=== PATIENT | female | born 2000 | race African-American/Black ===

== ENCOUNTER 2024-08-15 14:24 | Inpatient (IN) | payer MEDICARE, MEDICAID, SELFPAY ==
[2024-08-15] VITALS (31 sets, daily range): BP systolic 116–169; BP diastolic 83–97; PULSE 64–76; RESP 10–22; TEMP 34.6–35.6; O2SAT 92–100; BMI 34.9
--- NOTE | ~2024-08-15 | CT_ITS ---
EXAMINATION: CT brain wo con DATE: 08/15/2024 16:57 INDICATION: Altered mental status TECHNIQUE: Computed tomography (CT) of the head was performed without intravenous contrast. Sagittal and coronal reconstructions were performed. The mA was adjusted according to patient size. Iterative reconstruction technique was employed. The dose-length product was 605.33 mGy-cm. COMPARISON: None FINDINGS: No acute intracranial hemorrhage, acute infarction or abnormal extra axial fluid collection. Ventricl es are normal and symmetric with normal variant cavum septum callosum and vergae. No mass/mass effect . Mild pleural ossification along the falx. The orbits, paranasal sinuses and mastoid air cells are n ormal. IMPRESSION: 1. Normal brain. No acute intracranial process. Reviewed, dictated and finalized at location B. ER OPERATOR
--- NOTE | ~2024-08-15 | US_ITS ---
EXAMINATION: US abdomen limited DATE: 08/16/2024 09:44 INDICATION: Right upper quadrant abdominal pain. TECHNIQUE: Multiple grayscale and Doppler ultrasound images of the abdomen were obtained. COMPARISON: None FINDINGS: The visualized portions of the head, body, and tail of the pancreas are normal. The liver i s normal without focal lesion. There is antegrade pulsatile flow in main portal vein. The gallbladder is normal in size and contains gallstones. Gallbladder wall thickening is noted. There is no sonogra phic Lim's sign. The common duct is normal and measures 3 mm. There is trace perihepatic ascites. IMPRESSION: 1. Cholelithiasis. Gallbladder wall thickening may be secondary to chronic cholecystitis or interstit ial edema. 2. Antegrade pulsatile flow in main portal vein, which may be seen with right heart failure. Reviewed, dictated and finalized at location A. HICS SOFTWARE ENGINEER IMPRESSION: 1. Cholelithiasis. Gallbladder wall thickening may be secondary to chronic chol ecystitis or interstitial edema. 2. Antegrade pulsatile flow in main portal vein, which may be seen with right h eart failure.
--- NOTE | ~2024-08-15 | XR_ITS ---
EXAMINATION: XR chest 1V portable DATE: 08/15/2024 15:02 INDICATION: Altered mental status. TECHNIQUE: A single frontal view of the chest was obtained. COMPARISON: None. FINDINGS: There is mild elevation of right hemidiaphragm. There are airspace opacities in left lower lobe. No pleural effusion or pneumothorax. Cardiomegaly is noted. There is a vascular stent in left a xilla. IMPRESSION: 1. Airspace opacities in left lower lobe, consistent with atelectasis versus pneumonia. 2. Cardiomegaly. Reviewed, dictated and finalized at location A. [place] IMPRESSION: 1. Airspace opacities in left lower lobe, consistent with atelectasis versus pn eumonia. 2. Cardiomegaly.
[2024-08-15 14:41] LABS: Glucose Point of Care 123 mg/dl (65-105)
--- NOTE | 2024-08-15 14:45 | ECG_ITS ---
Test Date: 2024-08-15 15:18:41 Measurements Intervals [place] Rate: 64 P: 52 IN: 199 QRS: 110 QRSD: 88 T: 94 QT: 409 QTc: 422 Interpretive Statements SINUS RHYTHM LEFT ATRIAL ENLARGEMENT LEFT POSTERIOR FASCICULAR BLOCK NONSPECIFIC ST-T WAVE ABNORMALITY- DIFFUSE LEADS ABNORMAL ECG No previous ECG available for comparison Electronically Signed On 08-16-2024 16:23:52 EMERGENCY MANAGEMENT COORDINATOR by Anup Vang D.O.
[2024-08-15 15:12] LABS: Alveolar/Arterial O2 Gradient 21.7 mmHg; Base Excess ABG 1.3 mEq/l (+/-2.0); Fractional Inspired Oxygen 21 %; HCO3 ABG 25.4 mEq/l (22.0-26.0); Oxygen Content ABG 14.4 %vol (16.0-22.0); Oxygen Saturation ABG 96.4 % (95.0-100.0); Oxyhemoglobin 94.1 % THb (90.0-100.0); PCO2 ABG 38.4 mmHg (35.0-45.0); Total Hemoglobin 10.8 g/dL (12.0-18.0); pH ABG 7.439 (7.350-7.450)
[2024-08-15 15:15] LABS: Device ROOM AIR; Site Drawn RIGHT BRACHIAL
[2024-08-15 15:16] LABS: Basophils Absolute Auto 0.1 K/mm3 (0.0-0.1); Basophils Percent Auto 1.5 % (0.2-1.2); Eosinophils Absolute Auto 0.6 K/mm3 (0-0.3); Eosinophils Percent Auto 7.9 % (0-4.4); Hematocrit 30.8 % (37.0-47.0); Hemoglobin 10.1 g/dL (12.0-15.0); Immature Granulocyte Absolute 0.02 K/mm3 (0.00-0.031); Immature Granulocyte Percent A 0.3 % (0-0.5); Lymphocytes Absolute Auto 1.27 K/mm3 (0.9-3.2); Lymphocytes Percent Auto 17.9 % (18.3-44.2); Mean Corpuscular HGB Conc 32.8 g/dl (32-36); Mean Corpuscular Hemoglobin 32.2 pg (26-34); Mean Corpuscular Volume 98.1 fl (80-100); Mean Platelet Volume 9.1 fl (7.4-10.4); Monocytes Percent Auto 13.5 % (2.6-8.5); Neutrophils Absolute Auto 4.2 K/mm3 (1.3-6.7); Neutrophils Percent Auto 58.9 % (45.5-73.1); Platelet Count Result 271 k/mm3 (150-375); Red Blood Count 3.14 M/mm3 (4.2-5.4); Red Cell Distribution Width 16.1 % (11.5-14.5); White Blood Count 7.1 K/mm3 (4.5-10.0)
[2024-08-15] MEDS: NALOXONE HCL 0.4 MG/ML VIAL IV PUSH (15:21)
[2024-08-15 15:33] LABS: INR 1.3; Prothrombin Time 16.7 Seconds (11.1-14.7)
[2024-08-15 15:34] LABS: Alanine Aminotransferase 83 U/L (6-35); Albumin Level 3.8 g/dL (3.5-5.1); Alkaline Phosphatase 742 U/L (38-126); Anion Gap 11 mmol/L (4-12); Aspartate Amino Transferase 85 U/L (14-36); Bilirubin,Total 1.8 mg/dL (0.2-1.3); Blood Urea Nitrogen 63 mg/dL (7-17); Calcium 8.4 mg/dL (8.4-10.2); Carbon Dioxide 26 mmol/L (22-30); Chloride 100 mmol/L (98-107); Estimated CRCL calculation 18 ml/min; Estimated Glomerular Filt Rate 14; Ethanol < 10 mg/dL (<10); Glucose 67 mg/dL (65-110); Lactic Acid Reflex 0.7 mmol/L (0.7-2.0); Partial Thromboplastin Time 33.6 Seconds (22.3-36.8); Potassium 4.5 mmol/L (3.4-5.0); Sodium 137 mmol/L (137-145)
[2024-08-15 16:56] LABS: Influenza A QL RT-PCR Negative (Negative); Influenza B QL RT-PCR Negative (Negative); RSV RNA, RT-PCR Negative (Negative); SARS-CoV-2 RNA PCR Negative (Negative)
--- NOTE | 2024-08-15 17:08 | PC.NURSE ---
Pt returned from CT. Alex matute resumed on high
--- NOTE | 2024-08-15 17:37 | ED_ITS ---
HPI - Altered Mental Status General Chief Complaint: Altered Mental Status Stated Complaint: lethargic Time Seen by Provider: 08/15/24 14:41 History of Present Illness HPI narrative: Patient is a 23-year-old female who presents ER with altered mental status. She had gone to the store with her mom and was sitting the back of the car at a drive-through when she became acutely altered. According to the mother patient did this recently and was seen at [facility] and was treated for low blood sugar. Mother drove the patient to her home and checked her blood sugar and it was around 62. EMS arrived and gave D10 with no change in status and patient was brought to the ER. Patient responds to minor stimuli and tries to answer questions. She can move extremities but is very lethargic. Patient does not make urine. According mother patient does not use drugs or alcohol. Related Data Home Medications Medication Instructions Recorded Confirmed bictegravir 50 mg-emtricitabine 1 tablet PO QHS 08/16/24 08/16/24 200 mg-tenofovir alafenam 25 mg tablet (Biktarvy) carvedilol 25 mg tablet 25 mg PO BID 08/16/24 08/16/24 citalopram 10 mg tablet 10 mg PO DAILY 08/16/24 08/16/24 clonidine HCl 0.1 mg tablet See Rx Instructions .Route .COMPLEX 08/16/24 08/16/24 escitalopram oxalate 10 mg tablet 10 mg PO DAILY 08/16/24 08/16/24 gabapentin 100 mg capsule 100 mg PO TID 08/16/24 08/16/24 hydralazine 50 mg tablet See Rx Instructions .Route .COMPLEX 08/16/24 08/16/24 insulin aspart See Rx Instructions .Route .COMPLEX 08/16/24 08/16/24 (niacinamide)(U-100) 100 unit/mL(3 mL) subcutaneous pen (Fiasp FlexTouch U-100 Insulin) insulin glargine 100 unit/mL (3 12 unit subcut QHS 08/16/24 08/16/24 mL) subcutaneous pen (Basaglar KwikPen U-100 Insulin) isosorbide dinitrate 10 mg tablet 10 mg PO TID 08/16/24 08/16/24 losartan 50 mg tablet 50 mg PO DAILY 08/16/24 08/16/24 sucroferric oxyhydroxide 500 mg See Rx Instructions .Route .COMPLEX 08/16/24 08/16/24 chewable tablet (Velphoro) Allergies Allergy/AdvReac Type Severity Reaction Status Date / Time No Known Allergies Allergy Verified 08/15/24 17:57 Review of Systems Review of Systems: ROS unobtainable: Yes unobtainable due to mental status PMFSH Past Medical History Medical History (Updated 08/15/24 @ 22:10 by Kim Kwong APRN) CHF (congestive heart failure) Diabetic neuropathy DM type 1 (diabetes mellitus, type 1) ESRD (end stage renal disease) on dialysis HIV (human immunodeficiency virus infection) HTN (hypertension) Lumbar vertebral fracture 07/2024 Risk for falls Sleep apnea Walker as ambulation aid Surgical History Surgical History (Updated 08/15/24 @ 21:38 by Kim Kwong APRN) History of arteriovenostomy for renal dialysis Family History Family History (Updated 08/16/24 @ 07:50 by Claudia Jones RN) Father Diabetes mellitus Social History Social History Smoking status: Never smoker Alcohol intake: never Substance use: never Do You Feel Safe in your Home?: Yes Lack of Transportation: No Lack of Food: Never True Current Housing: I Have Housing Concerned About Future Housing: No Difficulty Paying Gas/Electric Bills: No Difficulty Paying for Meds: No Currently Unemployed: No Education: High School Diploma/GED Difficulty w/ Childcare or Family Care: No Spiritual care concerns: No Exam Narrative: GENERAL: Chronically ill-appearing, overweight, and slow to respond.. HEAD: Normocephalic, atraumatic. EYES: PERRL and EOMI. ENT: Mucous membranes moist. CHEST: Clear to auscultation. No respiratory distress. HEART: Regular rate and rhythm. Normal peripheral pulses. ABDOMEN: Soft, nontender, nondistended EXTREMITIES: Normal range of motion. No edema. SKIN: Warm, dry, no rash. NEURO: Moves all extremities. No facial droop. Alert and oriented x1. Course Course Emergency Course: patient remains altered on arrival here. Hypothermic and Alex warmer applied. Workup pretty unremarkable. No response to Narcan. IV antibiotics ordered as well as blood cultures. Admit to hospitalist. 1855: Patient's blood sugar at 21. D50 given. Up to 180, no change in mental status. Vital Signs Vital signs: Vital Signs Temperature 95.4 F L 08/15/24 14:28 Pulse Rate 64 08/15/24 14:28 Respiratory Rate 11 L 08/15/24 14:28 Blood Pressure 154/93 H 08/15/24 14:28 Pulse Oximetry 97 08/15/24 14:28 Oxygen Delivery Room Air 08/15/24 14:28 Temperature 97.6 F 08/16/24 03:15 Pulse Rate 69 08/16/24 06:00 Respiratory Rate 21 H 08/16/24 03:15 Blood Pressure 173/109 H 08/16/24 03:15 Pulse Oximetry 99 08/16/24 03:15 Oxygen Delivery Room Air 08/16/24 04:00 MDM - Altered Mental Status Lab Data 08/16/24 04:04 08/16/24 00:01 Labs: Lab Results 08/15/24 Range/Units 14:34 POC Capillary Glucose 123 H (65-105) mg/dl ABG Data ABG results: 08/15/24 15:06 Puncture Site Right brachial ABG pH 7.439 ABG pCO2 38.4 ABG pO2 82.0 ABG PO2/FiO2 Ratio 3.90 ABG HCO3 25.4 ABG O2 Saturation 96.4 ABG O2 Content 14.4 L ABG Base Excess 1.3 A-a Gradient 21.7 Oxyhemoglobin 94.1 Total Hemoglobin 10.8 L O2 Delivery Device Room air O2 Liters/Min Not Reportable FiO2 21 Imaging Data Radiologist's impression: ITS Impressions Chest X-Ray 08/15/24 15:02 IMPRESSION: 1. Airspace opacities in left lower lobe, consistent with atelectasis versus pneumonia. 2. Cardiomegaly. Head CT 08/15/24 16:59 IMPRESSION: 1. Normal brain. No acute intracranial process. Discharge Plan Discharge Clinical Impression: Hypoglycemia Hypothermia Qualifiers: Encounter type: initial encounter Qualified Code(s): T68.XXXA - Hypothermia, initial encounter Pneumonia Qualifiers: Pneumonia type: due to unspecified organism Laterality: left Lung location: lower lobe of lung Qualified Code(s): J18.9 - Pneumonia, unspecified organism Patient Disposition: Still a Patient Condition: Stable
--- NOTE | 2024-08-15 18:39 | PC.NURSE ---
Pt noted to have congested cough intermittent.
[2024-08-15] MEDS: DEXTROSE 50% 25 GM/50 ML SYRINGE IV PUSH ×2 (18:55→21:50)
[2024-08-15 18:59] LABS: Glucose Point of Care 21 mg/dl (65-105)
[2024-08-15] MEDS: AZITHROMYCIN 500 MG/NS 250 ML 500 MG/250 ML BAG 250 MG IVPB (18:59)
[2024-08-15 19:08] LABS: Glucose Point of Care 118 mg/dl (65-105)
[2024-08-15] MEDS: DEXTROSE 5% 1,000 ML 1,000 ML 100 ML IV CONT (19:51)
[2024-08-15 19:55] LABS: Glucose Point of Care 71 mg/dl (65-105)
--- NOTE | 2024-08-15 19:57 | P.HP_ITS ---
H&P: HPI History of Present Illness Date/Time: 08/15/24 19:57 Chief Complaint: Altered Mental Status Narrative: 23 y/o F presents here with altered mental status with PMH of DM1, ESRD on HD (/Sun), CHF, HTN, and HIV. The patient presents here via EMS for further evaluation of altered mental status. The patient was with her mom in the car when she became altered. The patient reported to her mom after the incident that she began to feel unwell when they got in the care around 1 p.m. Mom became concerned that her sugar may begin to drop given it was past lunch and the patient has a hx of DM1. They went through the drivethrough for a fast food restaurant. They then went to drive home from there, patient then stopped responding to verbal stimuli. Mom then drove to the patient's sister's house that was closer. She checked her sugar which was 41. She administered glucose gel. Recheck was 45. Initial glucose was 62, EMS was called and administered D10. Repeat blood sugar was checked at 200. However despite blood sugar being corrected, the patient remains lethargic. Patient's last hypoglycemic event prior to today was Sun and was also low week prior on . After hypoglycemia event last Sunday she was evaluated at [facility]. At this visit they adjusted her Lantus from 12u -> 16u. The mother reports that the patient has not been experiencing any cough, shortness of breath, fever, chills, body aches, or recent illness. Initial VS at presentation: 95.4? F, HR 64, RR 11, 154/93, and 97% on RA. ED workup showed: No leukocytosis, hemoglobin 10.1 (no previous available for comparison), INR 1.3, no significant derangements on ABG, creatinine 4.7 and GFR 14) no previous available for comparison), total bilirubin 1.8, TSH within normal limits, ETOH negative, and viral PCR negative. CXR showed airspace opacities left lower lobe consistent with atelectasis versus pneumonia and cardiomegaly. Head CT showed normal brain and no acute intracranial process. Review of Systems Review of Systems: ROS unobtainable: Yes unobtainable due to mental status (remains lethargic, discussed with mother - see above HPI) [facility] Past Medical History Medical History (Updated 08/15/24 @ 22:10 by Kim Kwong APRN) CHF (congestive heart failure) Diabetic neuropathy DM type 1 (diabetes mellitus, type 1) ESRD (end stage renal disease) on dialysis HIV (human immunodeficiency virus infection) HTN (hypertension) Lumbar vertebral fracture 07/2024 Risk for falls Sleep apnea Walker as ambulation aid Surgical History Surgical History (Updated 08/15/24 @ 21:38 by Kim Kwong APRN) History of arteriovenostomy for renal dialysis Meds Home Medications and Allergies Allergies Allergy/AdvReac Type Severity Reaction Status Date / Time No Known Allergies Allergy Verified 08/15/24 17:57 Vital Signs Vital Signs - 24 hr 08/15/24 14:28 08/15/24 14:41 08/15/24 14:48 Temperature 95.4 F L 95.4 F L Pulse Rate 64 Respiratory Rate 11 L Blood Pressure 154/93 H Pulse Oximetry 97 97 Oxygen Delivery Room Air Room Air 08/15/24 15:22 08/15/24 14:46 08/15/24 14:46 Temperature 94.3 F L 95.0 F L Pulse Rate 64 67 Respiratory Rate 12 Blood Pressure 151/97 H Pulse Oximetry 100 Oxygen Delivery 08/15/24 14:37 08/15/24 14:45 08/15/24 14:46 Temperature Pulse Rate 64 64 64 Respiratory Rate 11 L 12 12 Blood Pressure 154/93 H 160/91 H Pulse Oximetry 97 98 98 Oxygen Delivery 08/15/24 15:00 08/15/24 15:16 08/15/24 15:46 Temperature 95.0 F L Pulse Rate 64 64 64 Respiratory Rate 14 13 12 Blood Pressure 151/97 H 148/93 H Pulse Oximetry 99 100 100 Oxygen Delivery 08/15/24 16:01 08/15/24 16:31 08/15/24 16:40 Temperature 95 F L 95.0 F L Pulse Rate 65 67 Respiratory Rate 14 13 Blood Pressure 144/94 H 133/87 Pulse Oximetry 100 100 Oxygen Delivery 08/15/24 16:58 08/15/24 17:15 08/15/24 17:31 Temperature 95.6 F L 95.8 F L 95.8 F L Pulse Rate 68 68 70 Respiratory Rate 16 14 15 Blood Pressure 137/84 141/87 H 145/83 H Pulse Oximetry 96 94 100 Oxygen Delivery 08/15/24 15:00 08/15/24 15:30 08/15/24 16:00 Temperature 95.0 F L 95.0 F L 95.4 F L Pulse Rate 64 64 65 Respiratory Rate 16 14 14 Blood Pressure 169/97 H 146/94 H 133/87 Pulse Oximetry 100 100 100 Oxygen Delivery 08/15/24 18:31 08/15/24 18:01 08/15/24 18:15 Temperature 96.1 F L 95.8 F L 96.1 F L Pulse Rate 70 70 Respiratory Rate 14 16 Blood Pressure 135/87 130/87 Pulse Oximetry 100 100 Oxygen Delivery 08/15/24 18:40 Temperature 96.1 F L Pulse Rate 70 Respiratory Rate 14 Blood Pressure 129/84 Pulse Oximetry 100 Oxygen Delivery Exam Const: General: comfortable and no acute distress Other: , female, nontoxic appearance HENMT: Face/Nose/Sinus: Normal nares present Mouth: Yes moist mucous membranes Eyes: General: appearance normal, both eyes and all related structures Sclera: sclerae normal Pupils: Equal, round and reactive pupils present EOM: EOMs intact bilaterally Resp: Effort & Inspection: normal respiratory effort Other: Diffuse crackles/coarse lung sounds in bilateral lobes. Diminished at bases. Cardio: Rate: regular rate Rhythm: regular rhythm Other: S1-S2 present without murmur, rub, ectopy GI: Other: Abdomen soft, nondistended, nontender Skin: General skin exam: normal color and no rashes or lesions noted Other: Small wounds to face, no active bleeding or signs of infection. Surrounding old scarring. Neuro: Other: Patient remains lethargic, answering questions appropriately when able to sustain wakefulness. Extrem: General: normal to inspection Psych: Other: Unable to assess. H&P: Results Labs Labs: Short CBC 08/15/24 Range/Units 15:07 WBC 7.1 (4.5-10.0) K/mm3 Hgb 10.1 L (12.0-15.0) g/dL Hct 30.8 L (37.0-47.0) % Plt Count 271 (150-375) k/mm3 BMP 08/15/24 15:07 Sodium 137 Potassium 4.5 Chloride 100 Carbon Dioxide 26 BUN 63 H Creatinine 4.70 H Glucose 67 Calcium 8.4 Liver Function 08/15/24 Range/Units 15:07 Total Bilirubin 1.8 H (0.2-1.3) mg/dL AST 85 H (14-36) U/L ALT 83 H (6-35) U/L Alkaline Phosphatase 742 H (38-126) U/L Albumin 3.8 (3.5-5.1) g/dL Assessment and Plan Assessment and plan (1) Altered mental state: Qualifiers: Altered mental status type: somnolence Qualified Code(s): R40.0 - Somnolence Code(s): R41.82 - Altered mental status, unspecified Status: Acute Assessment and Plan: - head CT: No acute intracranial process. - patient does not make urine, unable to obtain a UDS. Trial of Narcan yielded no results in the ED. - glucose corrected initially and patient was able to stay in wakefulness and able to walk to the commode in the ER, however blood sugar has dropped and patient became lethargic/somnolent. Glucose rechecked and 67. Dextrose 12.5 g given, slightly more awake. Per mother when glucose was corrected she was appropriate. - add CK, TSH, GGT, ESR, CRP, CK, ammonia, troponin, procalcitonin, and hepatitis panel - suspect fluctuant somnolence secondary to fluctuant glucose levels (2) Hypoglycemia: Code(s): E16.2 - Hypoglycemia, unspecified Status: Acute Assessment and Plan: -hypoglycemia in the setting of type 1 diabetes - hypoglycemia protocol - POC blood glucose Q2H - home medication: Lantus 16 units a.m., plan to revert to previous dose at 12 and split dose to 6 units in the a.m. and 6 units HS. - correct regimen ordered - high dose TIDWM based off BMI - A1C ordered - clinical trial educator consulted (3) Hypothermia: Qualifiers: Encounter type: initial encounter Qualified Code(s): T68.XXXA - Hypothermia, initial encounter Code(s): T68.XXXA - Hypothermia, initial encounter Status: Acute Assessment and Plan: - initial temp 95.4? F - Alex Hugger applied (4) Pneumonia: Qualifiers: Laterality: left Lung location: lower lobe of lung Pneumonia type: due to unspecified organism Qualified Code(s): J18.9 - Pneumonia, unspecified org anism Code(s): J18.9 - Pneumonia, unspecified organism Status: Acute Assessment and Plan: - CXR: 1. Airspace opacities in left lower lobe, consistent with atelectasis versus pneumonia. 2. Cardiomegaly. - started on ceftriaxone and azithromycin on 08/15 - Viral PCR negative - add MRSA - supportive care - no supplemental O2 requirement at this time (5) ESRD (end stage renal disease) on dialysis: Code(s): N18.6 - End stage renal disease; Z99.2 - Dependence on renal dialysis Status: Chronic Assessment and Plan: - creatinine 4.7 and GFR 14 - nephrology consulted - dialysis: Sunday, , Sunday. No recently missed treatments. - trend renal function - trend electrolytes, correct as needed (6) HTN (hypertension): Qualifiers: Hypertension type: secondary to other renal disorders Qualified Code(s): I15.1 - Hypertension secondary to other renal disorders Code(s): I10 - Essential (primary) hypertension Status: Acute Assessment and Plan: - chronic, currently 116/94 - continue home medications: Carvedilol 3.125 mg b.i.d., losartan 50 mg daily - monitor Plan Has been diagnosed with sleep apnea, however unable to get a CPAP machine and has scheduled appointment for next year to be evaluated. Will start CPAP here given coarse/wet lung sounds. Unable to confirm all of the patient's home medications at this time. Mother not available and patient remains somnolent. Review of outside med rec showed carvedilol and losartan filled within the last week and has been same dose for months, continued. Did discuss Biktarvy and Lantus dose with mom, medications continued. Requesting records from [facility], [facility], [facility]. Diet: Renal/dialysis GI Prophylaxis: Not currently indicated DVT Prophylaxis: SCD Lines: Peripheral Code Status: Full code Quality VTE Prophylaxis VTE prophylaxis: mechanical ordered Hospitalist MIPS Advance Care Plan I have confirmed that the patient's Advanced Care Plan is present, code status is documented, or surrogate decision maker is listed in patient medical record.: Yes Medication Reconciliation I have utilized all available resources to obtain, update and review the patients current medications (includes all prescriptions, OTC, herbals, cannabis, and nutritional supplements).: Yes
--- NOTE | 2024-08-15 20:00 | PC.NURSE ---
BS taken at 1850. ERP aware of result at 21. D5) given per NOV, rechecked at 1902, pts BS at 118. Pt awake and alert asking for food at this time.
[2024-08-15 20:22] LABS: Glucose Point of Care 88 mg/dl (65-105)
[2024-08-15 21:00] LABS: Glucose Point of Care 89 mg/dl (65-105)
[2024-08-15 21:46] LABS: Glucose Point of Care 69 mg/dl (65-105)
[2024-08-15 22:26] LABS: Hemoglobin A1C 8.8 % (<5.7)
[2024-08-15 22:40] LABS: Magnesium 2.2 mg/dL (1.6-2.3)
[2024-08-15 22:58] LABS: NT Pro B Type Natriuretic Pept 18000 pg/mL (19.9-100); Troponin I 0.058 ng/mL (0.000-0.034)
[2024-08-15 23:42] LABS: Glucose Point of Care 143 mg/dl (65-105)
[2024-08-16] VITALS (35 sets, daily range): BP systolic 134–211; BP diastolic 84–122; PULSE 65–88; RESP 10–21; TEMP 36.4–37; O2SAT 94–100
[2024-08-16 00:36] LABS: Ammonia 45 umol/L (9-30)
[2024-08-16 00:37] LABS: CRP 0.8 mg/dL (<1.0); Creatine Kinase 96 U/L (30-135)
[2024-08-16 00:55] LABS: Erythrocyte Sedimentation Rate 124 mm/hr (0-20)
[2024-08-16 01:01] LABS: Procalcitonin 2.9 ng/mL
[2024-08-16 02:38] LABS: Glucose Point of Care 151 mg/dl (65-105)
[2024-08-16 03:39] LABS: GGT 428 U/L (3-40)
--- NOTE | 2024-08-16 04:04 | ADMIMU ---
This patient, Avril Cevallos, was admitted to IMU status, and placed in Intensive Care Unit-4 on 08/15/24 at 2043. Patient/family oriented to hospital policies and general routines including ID bracelet, bed and alarms, visiting hours, pain management, procedures, bathroom and other care routines, personal items, smoking policy, room service/diet, and visiting hours. Valuables list has been completed. Information on how to activate the Rapid Response Team has been discussed. Patient/Family are encouraged to report perceived risks to care and to ask questions if they do not understand what they are told or what they should do.
[2024-08-16 04:08] LABS: Basophils Absolute Auto 0.1 K/mm3 (0.0-0.1); Basophils Percent Auto 1.6 % (0.2-1.2); Eosinophils Absolute Auto 0.4 K/mm3 (0-0.3); Eosinophils Percent Auto 6.3 % (0-4.4); Immature Granulocyte Absolute 0.02 K/mm3 (0.00-0.031); Immature Granulocyte Percent A 0.3 % (0-0.5); Lymphocytes Absolute Auto 1.45 K/mm3 (0.9-3.2); Lymphocytes Percent Auto 22.8 % (18.3-44.2); Mean Corpuscular HGB Conc 32.3 g/dl (32-36); Mean Corpuscular Hemoglobin 31.8 pg (26-34); Mean Corpuscular Volume 98.7 fl (80-100); Mean Platelet Volume 9.1 fl (7.4-10.4); Monocytes Absolute Auto 0.9 K/mm3 (0.1-0.6); Monocytes Percent Auto 13.8 % (2.6-8.5); Neutrophils Absolute Auto 3.5 K/mm3 (1.3-6.7); Neutrophils Percent Auto 55.2 % (45.5-73.1); Platelet Count Result 254 k/mm3 (150-375); Red Blood Count 3.14 M/mm3 (4.2-5.4); Red Cell Distribution Width 15.9 % (11.5-14.5); White Blood Count 6.4 K/mm3 (4.5-10.0)
[2024-08-16 05:27] LABS: HAV RESULT Negative (Negative); Hepatitis B Core IgM Result Negative (Negative); Hepatitis B Surface Antigen Negative (Negative); Hepatitis C Virus Antibody Negative (Negative)
[2024-08-16 05:36] LABS: Alanine Aminotransferase 78 U/L (6-35); Albumin Level 3.7 g/dL (3.5-5.1); Alkaline Phosphatase 686 U/L (38-126); Anion Gap 17 mmol/L (4-12); Aspartate Amino Transferase 75 U/L (14-36); Bilirubin,Total 1.8 mg/dL (0.2-1.3); Blood Urea Nitrogen 66 mg/dL (7-17); Calcium 8.5 mg/dL (8.4-10.2); Carbon Dioxide 21 mmol/L (22-30); Chloride 97 mmol/L (98-107); Estimated CRCL calculation 16 ml/min; Estimated Glomerular Filt Rate 12; Glucose 129 mg/dL (65-110); Magnesium 2.2 mg/dL (1.6-2.3); Phosphorus 8.8 mg/dL (2.5-4.5); Potassium 5.6 mmol/L (3.4-5.0); Sodium 135 mmol/L (137-145)
[2024-08-16 07:20] LABS: Glucose Point of Care 111 mg/dl (65-105)
[2024-08-16] MEDS: LOSARTAN POTASSIUM 50 MG TABLET PO (09:28)
[2024-08-16] MEDS: carvediloL 3.125 MG TABLET PO (09:28)
[2024-08-16] MEDS: INSULIN GLARGINE (*BKC) 100 UNITS/ML 6 UNITS SUB-Q ×2 (09:30→17:21)
[2024-08-16 11:28] LABS: Glucose Point of Care 194 mg/dl (65-105)
[2024-08-16 11:28] LABS: MRSA (PCR) NOT DETECTED (NOT DETECTE)
--- NOTE | 2024-08-16 11:54 | P.CONNP_ITS ---
Assessment and Plan Assessment and plan (1) ESRD (end stage renal disease) on dialysis: Code(s): N18.6 - End stage renal disease; Z99.2 - Dependence on renal dialysis Status: Chronic Assessment and Plan: the patient has end-stage renal disease. This is due to diabetes. She gets dialysis 3 times a week under the care of Dr. Hinson. she had a last treatment on and it was uneventful. She is due for dialysis today. I have written orders for this and I called the dialysis nurse to do it this afternoon. (2) HTN (hypertension): Qualifiers: Hypertension type: secondary to other renal disorders Qualified Code(s): I15.1 - Hypertension secondary to other renal disorders Code(s): I10 - Essential (primary) hypertension Status: Acute Assessment and Plan: Blood pressure is high. At home she takes carvedilol clonidine hydralazine and losartan for this. Today her blood pressure is still somewhat high. I will write for some p.r.n. clonidine. I will also remove fluid with the dialysis machine which may control her blood pressure as well. (3) Diabetes: Code(s): E11.9 - Type 2 diabetes mellitus without complications Status: Acute Assessment and Plan: On sliding scale and Accu-Cheks. Management per hospitalist. (4) Erythropoietin deficiency anemia: Code(s): D63.1 - Anemia in chronic kidney disease Status: Acute Assessment and Plan: Hemoglobin is 10.0. Will give her some Epogen. (5) Renal osteodystrophy: Code(s): N25.0 - Renal osteodystrophy Status: Acute Plan Will check a phosphorus level in the morning History of Present Illness Reason for Consult Consult date: 08/17/24 Chief Complaint Chief complaint: lethargic History of Present Illness Narrative: Avril is a very pleasant 23-year-old lady who has multiple medical problems including end-stage renal disease on dialysis for about 2 years under the care Dr. Hinson, hypertension, diabetes, congestive heart failure, HIV, lumbar vertebral fracture, sleep apnea, anemia, renal osteodystrophy. The patient came in the hospital because of altered mental status. She was driving in a car with her mom and said that she felt lightheaded. They both assumed low sugar and so they pulled into a fast food place and got her some sugar. Unfortunately the patient continued to be more lethargic so they called 911. Her sugar was in the 60s. She was given D50 and brought to the ER. Sugar was a little bit better here. She was given D10 and brought up to the ICU for close monitoring. The patient had her last dialysis on . She has been going to every treatment. They got the required fluid off then. The dialysis was uneventful. Review of Systems Constitutional: Constitutional: Reports no additional constitutional compl aints Eyes: Eyes: Reports no additional eye complaints ENT: Reports system reviewed and no additional complaints, except as documented Cardiovascular: Cardiovascular: Reports no additional cardiovascular complaints Respiratory: Respiratory: Reports no additional respiratory complaints Gastrointestinal: Gastrointestinal: Reports no additional gastrointestinal complaints Genitourinary: Genitourinary: Reports no additional female genitourinary complaints Musculoskeletal: Musculoskeletal: Reports no additional musculoskeletal complaints Integumentary/Breasts: Skin/Breast: Reports system reviewed and no additional complaints, except as docu Neurologic: Reports system reviewed and no additional complaints, except as documented Psychiatric: Psychiatric: Reports no additional psychiatric complaints Endocrine: Endocrine: Reports no additional endocrine complaints PMFSH Past Medical History Medical History CHF (congestive heart failure) Diabetic neuropathy DM type 1 (diabetes mellitus, type 1) ESRD (end stage renal disease) on dialysis HIV (human immunodeficiency virus infection) HTN (hypertension) Lumbar vertebral fracture 07/2024 Risk for falls Sleep apnea Walker as ambulation aid Surgical History Surgical History History of arteriovenostomy for renal dialysis Family History Family History Father Diabetes mellitus Social History Social History Smoking status: Never smoker Alcohol intake: never Substance use: never Do You Feel Safe in your Home?: Yes Lack of Transportation: No Lack of Food: Never True Current Housing: I Have Housing Concerned About Future Housing: No Difficulty Paying Gas/Electric Bills: No Difficulty Paying for Meds: No Currently Unemployed: No Education: High School Diploma/GED Difficulty w/ Childcare or Family Care: No Spiritual care concerns: No Meds Home Medications and Allergies Home Medications Medication Instructions Recorded Confirmed Type bictegravir 50 mg-emtricitabine 1 tablet PO QHS 08/16/24 08/16/24 History 200 mg-tenofovir alafenam 25 mg tablet (Biktarvy) carvedilol 25 mg tablet 25 mg PO BID 08/16/24 08/16/24 History citalopram 10 mg tablet 10 mg PO DAILY 08/16/24 08/16/24 History clonidine HCl 0.1 mg tablet See Rx Instructions .Route .COMPLEX 08/16/24 08/16/24 History escitalopram oxalate 10 mg tablet 10 mg PO DAILY 08/16/24 08/16/24 History gabapentin 100 mg capsule 100 mg PO TID 08/16/24 08/16/24 History hydralazine 50 mg tablet See Rx Instructions .Route .COMPLEX 08/16/24 08/16/24 History insulin aspart See Rx Instructions .Route .COMPLEX 08/16/24 08/16/24 History (niacinamide)(U-100) 100 unit/mL(3 mL) subcutaneous pen (Fiasp FlexTouch U-100 Insulin) insulin glargine 100 unit/mL (3 12 unit subcut QHS 08/16/24 08/16/24 History mL) subcutaneous pen (Basaglar KwikPen U-100 Insulin) isosorbide dinitrate 10 mg tablet 10 mg PO TID 08/16/24 08/16/24 History losartan 50 mg tablet 50 mg PO DAILY 08/16/24 08/16/24 History sucroferric oxyhydroxide 500 mg See Rx Instructions .Route .COMPLEX 08/16/24 08/16/24 History chewable tablet (Velphoro) Allergies Allergy/AdvReac Type Severity Reaction Status Date / Time No Known Allergies Allergy Verified 08/15/24 17:57 Vital Signs Vital Signs - 24 hr 08/15/24 14:28 08/15/24 14:41 08/15/24 14:48 Temperature 95.4 F L 95.4 F L Pulse Rate 64 Respiratory Rate 11 L Blood Pressure 154/93 H Pulse Oximetry 97 97 Oxygen Delivery Room Air Room Air 08/15/24 15:22 08/15/24 14:46 08/15/24 14:46 Temperature 94.3 F L 95.0 F L Pulse Rate 64 67 Respiratory Rate 12 Blood Pressure 151/97 H Pulse Oximetry 100 Oxygen Delivery 08/15/24 14:37 08/15/24 14:45 08/15/24 14:46 Temperature Pulse Rate 64 64 64 Respiratory Rate 11 L 12 12 Blood Pressure 154/93 H 160/91 H Pulse Oximetry 97 98 98 Oxygen Delivery 08/15/24 15:00 08/15/24 15:16 08/15/24 15:46 Temperature 95.0 F L Pulse Rate 64 64 64 Respiratory Rate 14 13 12 Blood Pressure 151/97 H 148/93 H Pulse Oximetry 99 100 100 Oxygen Delivery 08/15/24 16:01 08/15/24 16:31 08/15/24 16:40 Temperature 95 F L 95.0 F L Pulse Rate 65 67 Respiratory Rate 14 13 Blood Pressure 144/94 H 133/87 Pulse Oximetry 100 100 Oxygen Delivery 08/15/24 16:58 08/15/24 17:15 08/15/24 17:31 Temperature 95.6 F L 95.8 F L 95.8 F L Pulse Rate 68 68 70 Respiratory Rate 16 14 15 Blood Pressure 137/84 141/87 H 145/83 H Pulse Oximetry 96 94 100 Oxygen Delivery 08/15/24 15:00 08/15/24 15:30 08/15/24 16:00 Temperature 95.0 F L 95.0 F L 95.4 F L Pulse Rate 64 64 65 Respiratory Rate 16 14 14 Blood Pressure 169/97 H 146/94 H 133/87 Pulse Oximetry 100 100 100 Oxygen Delivery 08/15/24 18:31 08/15/24 18:01 08/15/24 18:15 Temperature 96.1 F L 95.8 F L 96.1 F L Pulse Rate 70 70 Respiratory Rate 14 16 Blood Pressure 135/87 130/87 Pulse Oximetry 100 100 Oxygen Delivery 08/15/24 18:40 08/15/24 20:36 08/15/24 18:37 Temperature 96.1 F L Pulse Rate 70 69 71 Respiratory Rate 14 20 14 Blood Pressure 129/84 129/84 Pulse Oximetry 100 99 100 Oxygen Delivery 08/15/24 18:45 08/15/24 19:01 08/15/24 19:15 Temperature Pulse Rate 71 69 70 Respiratory Rate 14 14 19 Blood Pressure 116/94 H Pulse Oximetry 95 98 92 Oxygen Delivery 08/15/24 19:47 08/15/24 20:00 08/15/24 20:15 Temperature Pulse Rate 76 71 69 Respiratory Rate 22 H 13 16 Blood Pressure Pulse Oximetry 95 97 98 Oxygen Delivery 08/15/24 23:36 08/16/24 02:24 08/16/24 00:00 Temperature Pulse Rate 66 66 65 Respiratory Rate 10 L 11 L Blood Pressure Pulse Oximetry 98 100 Oxygen Delivery CPAP CPAP 08/16/24 02:00 08/16/24 04:00 08/16/24 06:00 Temperature Pulse Rate 68 67 69 Respiratory Rate Blood Pressure Pulse Oximetry Oxygen Delivery 08/16/24 00:00 08/16/24 04:00 08/16/24 00:00 Temperature 97.5 F L Pulse Rate 65 Respiratory Rate 10 L Blood Pressure 158/102 H Pulse Oximetry 98 Oxygen Delivery Room Air Room Air 08/16/24 03:15 08/16/24 09:28 Temperature 97.6 F Pulse Rate 67 73 Respiratory Rate 21 H Blood Pressure 173/109 H Pulse Oximetry 99 Oxygen Delivery Exam Narrative: Exam Narrative: Well developed well-nourished Female in no acute distress Skin is warm and dry without rash Head normocephalic atraumatic Eyes normal sclerae and conjunctivae Mouth normal lips teeth and gums Neck no nodes no thyromegaly no carotid bruits Axillae no nodes Back no CVA tenderness Lungs symmetric and clear to auscultation and percussion Heart regular rate and rhythm without rub or gallop Abdomen bowel sounds positive soft nontender, no HSM, masses, or bruits. Extremities no cyanosis, clubbing, or edema Pulses 2+ equal in radial arteries Psychological not anxious or depressed Neuro alert and oriented x3 motor 5/5 cranial nerves 2-12 intact reflexes 2+ and equal in the biceps and patellar tendons cerebellar normal rapid alternating movements Results Lab Results 08/17/24 07:54 08/17/24 07:54 Lab results: Most recent lab results ABG pH 7.439 (7.350-7.450) 08/15/24 15:06 ABG pCO2 38.4 mmHg (35.0-45.0) 08/15/24 15:06 ABG pO2 82.0 mmHg (80.0-100.0) 08/15/24 15:06 ABG HCO3 25.4 mEq/l (22.0-26.0) 08/15/24 15:06 ABG O2 Saturation 96.4 % (95.0-100.0) 08/15/24 15:06 Calcium 8.5 mg/dL (8.4-10.2) 08/16/24 00:01 Phosphorus 8.8 mg/dL (2.5-4.5) H 08/16/24 00:01 Magnesium 2.2 mg/dL (1.6-2.3) 08/16/24 00:01
--- NOTE | 2024-08-16 14:04 | PC.NURSE ---
Consent for release of medical records faxed to [facility] and [facility]. Awaiting response.
[2024-08-16 15:54] LABS: Glucose Point of Care 158 mg/dl (65-105)
--- NOTE | 2024-08-16 16:36 | P.PNIM_ITS ---
Progress Note: A&P Assessment and Plan (1) Altered mental state: Qualifiers: Altered mental status type: somnolence Qualified Code(s): R40.0 - Somnolence Code(s): R41.82 - Altered mental status, unspecified Status: Acute Assessment and Plan: - head CT: No acute intracranial process. - patient does not make urine, unable to obtain a UDS. Trial of Narcan yielded no results in the ED. - glucose corrected initially and patient was able to stay in wakefulness and able to walk to the commode in the ER, however blood sugar has dropped and patient became lethargic/somnolent. Glucose rechecked and 67. Dextrose 12.5 g given, slightly more awake. Per mother when glucose was corrected she was ap propriate. resolved now alert and oriented x3 monitor (2) Hypoglycemia: Code(s): E16.2 - Hypoglycemia, unspecified Status: Acute Assessment and Plan: -hypoglycemia in the setting of type 1 diabetes - hypoglycemia protocol - POC blood glucose Q2H - home medication: Lantus 16 units a.m., plan to revert to previous dose at 12 and split dose to 6 units in the a.m. and 6 units HS. - correct regimen ordered - high dose TIDWM based off BMI - A1C ordered - clinical unit educator consulted blood sugar wnl now continue Lantus 12 unit daily (3) Hypothermia: Qualifiers: Encounter type: initial encounter Qualified Code(s): T68.XXXA - Hypothermia, initial encounter Code(s): T68.XXXA - Hypothermia, initial encounter Status: Acute Assessment and Plan: - initial temp 95.4? F - Alex Hugger applied resolved (4) Pneumonia: Qualifiers: Laterality: left Lung location: lower lobe of lung Pneumonia type: due to unspecified organism Qualified Code(s): J18.9 - Pneumonia, unspecified organism Code(s): J18.9 - Pneumonia, unspecified organism Status: Acute Assessment and Plan: - CXR: 1. Airspace opacities in left lower lobe, consistent with atelectasis versus pneumonia. 2. Cardiomegaly. - started on ceftriaxone and azithromycin on 08/15 - Viral PCR negative - add MRSA - supportive care - no supplemental O2 requirement at this time (5) ESRD (end stage renal disease) on dialysis: Code(s): N18.6 - End stage renal disease; Z99.2 - Dependence on renal dialysis Status: Chronic Assessment and Plan: - creatinine 4.7 and GFR 14 - nephrology consulted - dialysis: Sunday, , Sunday. No recently missed treatments. - trend renal function - trend electrolytes, correct as needed (6) HTN (hypertension): Qualifiers: Hypertension type: secondary to other renal disorders Qualified Code(s): I15.1 - Hypertension secondary to other renal disorders Code(s): I10 - Essential (primary) hypertension Status: Acute Assessment and Plan: - chronic, currently 116/94 - continue home medications: Carvedilol 3.125 mg b.i.d., losartan 50 mg daily - monitor Plan Has been diagnosed with sleep apnea, however unable to get a CPAP machine and has scheduled appointment for next year to be evaluated. Will start CPAP here given coarse/wet lung sounds. HIV continue home biktarvy Diet: Renal/dialysis DVT Prophylaxis: Sq Heaprin Lines: Peripheral Code Status: Full code Subjective Date/time seen: 08/16/24 16:36 Interval history: patient comfortable at bedside Review of Systems Review of Systems: ROS unobtainable: Yes unobtainable due to mental status (remains lethargic, discussed with mother - see above HPI) Exam Const: General: comfortable and no acute distress Other: , female, nontoxic appearance HENMT: Face/Nose/Sinus: Normal nares present Mouth: Yes moist mucous membranes Eyes: General: appearance normal, both eyes and all related structures Sclera: sclerae normal Pupils: Equal, round and reactive pupils present EOM: EOMs intact bilaterally Resp: Effort & Inspection: normal respiratory effort Other: Diffuse crackles/coarse lung sounds in bilateral lobes. Diminished at bases. Cardio: Rate: regular rate Rhythm: regular rhythm Other: S1-S2 present without murmur, rub, ectopy GI: Other: Abdomen soft, nondistended, nontender Skin: General skin exam: normal color and no rashes or lesions noted Other: Small wounds to face, no active bleeding or signs of infection. Surrounding old scarring. Neuro: Cranial nerves: Yes Equal, round and reactive pupils present Other: Patient remains lethargic, answering questions appropriately when able to sustain wakefulness. Extrem: General: normal to inspection Psych: Other: Unable to assess. Objective Data Vital Signs Vital Signs: Vital Signs - 24 hr 08/15/24 16:40 08/15/24 16:58 08/15/24 17:15 Temperature 95.0 F L 95.6 F L 95.8 F L Pulse Rate 68 68 Respiratory Rate 16 14 Blood Pressure 137/84 141/87 H Pulse Oximetry 96 94 Oxygen Delivery 08/15/24 17:31 08/15/24 18:31 08/15/24 18:01 Temperature 95.8 F L 96.1 F L 95.8 F L Pulse Rate 70 70 Respiratory Rate 15 14 Blood Pressure 145/83 H 135/87 Pulse Oximetry 100 100 Oxygen Delivery 08/15/24 18:15 08/15/24 18:40 08/15/24 20:36 Temperature 96.1 F L 96.1 F L Pulse Rate 70 70 69 Respiratory Rate 16 14 20 Blood Pressure 130/87 129/84 Pulse Oximetry 100 100 99 Oxygen Delivery 08/15/24 18:37 08/15/24 18:45 08/15/24 19:01 Temperature Pulse Rate 71 71 69 Respiratory Rate 14 14 14 Blood Pressure 129/84 116/94 H Pulse Oximetry 100 95 98 Oxygen Delivery 08/15/24 19:15 08/15/24 19:47 08/15/24 20:00 Temperature Pulse Rate 70 76 71 Respiratory Rate 19 22 H 13 Blood Pressure Pulse Oximetry 92 95 97 Oxygen Delivery 08/15/24 20:15 08/15/24 23:36 08/16/24 02:24 Temperature Pulse Rate 69 66 66 Respiratory Rate 16 10 L 11 L Blood Pressure Pulse Oximetry 98 98 100 Oxygen Delivery CPAP CPAP 08/16/24 00:00 08/16/24 02:00 08/16/24 04:00 Temperature Pulse Rate 65 68 67 Respiratory Rate Blood Pressure Pulse Oximetry Oxygen Delivery 08/16/24 06:00 08/16/24 00:00 08/16/24 04:00 Temperature Pulse Rate 69 Respiratory Rate Blood Pressure Pulse Oximetry Oxygen Delivery Room Air Room Air 08/16/24 00:00 08/16/24 03:15 08/16/24 09:28 Temperature 97.5 F L 97.6 F Pulse Rate 65 67 73 Respiratory Rate 10 L 21 H Blood Pressure 158/102 H 173/109 H Pulse Oximetry 98 99 Oxygen Delivery 08/16/24 13:45 08/16/24 13:59 08/16/24 14:30 Temperature 97.6 F Pulse Rate 73 79 78 Respiratory Rate 19 Blood Pressure 164/98 H 149/84 H 190/102 H Pulse Oximetry 100 Oxygen Delivery 08/16/24 14:45 08/16/24 15:00 08/16/24 15:15 Temperature Pulse Rate 78 79 81 Respiratory Rate Blood Pressure 184/100 H 199/101 H 186/111 H Pulse Oximetry Oxygen Delivery 08/16/24 15:30 08/16/24 15:45 08/16/24 16:00 Temperature Pulse Rate 82 84 85 Respiratory Rate Blood Pressure 188/86 H 189/104 H 209/106 H Pulse Oximetry Oxygen Delivery 08/16/24 08:00 08/16/24 10:00 08/16/24 12:00 Temperature Pulse Rate 70 72 71 Respiratory Rate Blood Pressure Pulse Oximetry Oxygen Delivery 08/16/24 08:00 08/16/24 10:00 08/16/24 12:00 Temperature 98.0 F Pulse Rate 70 72 71 Respiratory Rate 16 16 17 Blood Pressure 182/107 H 183/105 H 154/98 H Pulse Oximetry 96 99 96 Oxygen Delivery 08/16/24 14:00 08/16/24 14:00 08/16/24 08:00 Temperature Pulse Rate 71 78 Respiratory Rate 19 Blood Pressure 149/84 H Pulse Oximetry 97 Oxygen Delivery Room Air 08/16/24 12:00 08/16/24 14:15 08/16/24 16:00 Temperature Pulse Rate 75 Respiratory Rate Blood Pressure 194/109 H Pulse Oximetry Oxygen Delivery Room Air Room Air Intake/Output Intake/Output: Intake & Output 08/13/24 08/14/24 08/15/24 08/16/24 23:59 23:59 23:59 23:59 Intake Total 300 670 Output Total 0 Balance 300 670 Meds/Results Medications: Active Medications Generic Name Dose Route Start Last Admin Trade Name Freq PRN Reason Stop Dose Admin Acetaminophen 650 mg 08/15/24 17:43 Acetaminophen 325 Mg Tablet PO Q4H PRN Mild Pain (1-3) or Fever Hydrocodone Bitart/Acetaminophen 1 tab 08/15/24 17:43 Hydrocodone/Acetaminophen (*Crx) 5-325 Mg Tablet PO Q4H PRN Pain Rated 4-6 Carvedilol 3.125 mg 08/16/24 09:00 08/16/24 09:28 Carvedilol 3.125 Mg Tablet PO 3.125 mg Q12HR NHUNG Administration Clonidine HCl 0.1 mg 08/16/24 16:19 Clonidine Hcl 0.1 Mg Tablet PO Q8HR PRN SBP>160mmHg Dextrose 12.5 gm 08/15/24 17:43 08/15/24 21:50 Dextrose 50% 25 Gm/50 Ml Syringe IV PUSH 12.5 gm PRN PRN Administration Hypoglycemia Protocol Epoetin Bear-epbx 10,000 units 08/16/24 10:45 08/16/24 16:10 Epoetin Bear-Epbx 10,000 Units/Ml Vial IV PUSH Not Given TUTHSA@09 NHUNG Glucagon 1 mg 08/15/24 17:43 Glucagon For Inj 1 Mg Vial IM PRN PRN Hypoglycemia Protocol Glucose 15 gm 08/15/24 17:43 Glucose Oral Gel 15 Gm Of Glucse In 37.5 Gm Tube PO PRN PRN Hypoglycemia Protocol Ceftriaxone Sodium 1 gm in 50 mls @ 100 mls/hr 08/16/24 18:00 Rocephin 1 Gm/Ns 50 Ml IVPB Q24H NHUNG Azithromycin 500 mg in 250 mls @ 250 mls/hr 08/16/24 18:00 Zithromax IVPB Q24H NHUNG Dextrose 1,000 mls @ 100 mls/hr 08/15/24 17:43 Dextrose 5% 1,000 Ml IVPB PRN PRN Hypoglycemia Protocol Insulin Glargine 6 units 08/16/24 09:00 08/16/24 09:30 Insulin Glargine (*Bkc) 100 Units/Ml SUB-Q 6 units BID NHUNG Administration Losartan Potassium 50 mg 08/16/24 09:00 08/16/24 09:28 Losartan Potassium 50 Mg Tablet PO 50 mg DAILY NHUNG Administration Nonformulary ( 0 mg 08/16/24 18:00 Biktarvy) PO 09/15/24 17:59 Bictegravir/ EVENING NHUNG Emtricitabine/ Tenofovir Alafenamide 50/200/ 25 Mg) ) Promethazine HCl 12.5 mg 08/15/24 17:43 Promethazine Hcl 25 Mg/Ml Ampul IV PUSH Q6H PRN Nausea Radiology Results: ITS Impressions Chest X-Ray 08/15/24 15:02 IMPRESSION: 1. Airspace opacities in left lower lobe, consistent with atelectasis versus pneumonia. 2. Cardiomegaly. Head CT 08/15/24 16:59 IMPRESSION: 1. Normal brain. No acute intracranial process. Abdomen Ultrasound 08/16/24 09:50 IMPRESSION: 1. Cholelithiasis. Gallbladder wall thickening may be secondary to chronic cholecystitis or interstitial edema. 2. Antegrade pulsatile flow in main portal vein, which may be seen with right heart failure. Labs Labs: Laboratory Results - last 24 hr 08/15/24 08/15/24 08/15/24 16:13 18:51 19:03 WBC RBC Hgb Hct MCV MCH MCHC RDW Plt Count MPV Immature Gran % (Auto) Neut % (Auto) Lymph % (Auto) [place] % (Auto) Eos % (Auto) Baso % (Auto) Lymph # (Auto) [place] # (Auto) Eos # (Auto) Baso # (Auto) Abs Immat Gran (auto) Absolute Neuts (auto) Absolute Nucleated RBC Nucleated RBC % ESR Sodium Potassium Chloride Carbon Dioxide Anion Gap BUN Creatinine Estim Creat Clear Calc Estimated GFR Glucose POC Capillary Glucose 21 L* 118 H Hemoglobin A1c Calcium Phosphorus Magnesium Total Bilirubin GGT AST ALT Alkaline Phosphatase Ammonia Total Creatine Kinase Troponin I C-Reactive Protein NT-Pro-B Natriuret Pep Total Protein Albumin Procalcitonin Nasal MRSA (PCR) Hepatitis A IgM Ab Hep Bs Antigen Hep B Core IgM Ab Hepatitis C Ab Screen Influenza A (RT-PCR) Negative Influenza B (RT-PCR) Negative RSV (RT-PCR) Negative SARS-CoV-2 RNA (RT-PCR) Negative 08/15/24 08/15/24 08/15/24 19:53 20:19 20:48 WBC RBC Hgb Hct MCV MCH MCHC RDW Plt Count MPV Immature Gran % (Auto) Neut % (Auto) Lymph % (Auto) [place] % (Auto) Eos % (Auto) Baso % (Auto) Lymph # (Auto) [place] # (Auto) Eos # (Auto) Baso # (Auto) Abs Immat Gran (auto) Absolute Neuts (auto) Absolute Nucleated RBC Nucleated RBC % ESR Sodium Potassium Chloride Carbon Dioxide Anion Gap BUN Creatinine Estim Creat Clear Calc Estimated GFR Glucose POC Capillary Glucose 71 88 89 Hemoglobin A1c Calcium Phosphorus Magnesium Total Bilirubin GGT AST ALT Alkaline Phosphatase Ammonia Total Creatine Kinase Troponin I C-Reactive Protein NT-Pro-B Natriuret Pep Total Protein Albumin Procalcitonin Nasal MRSA (PCR) Hepatitis A IgM Ab Hep Bs Antigen Hep B Core IgM Ab Hepatitis C Ab Screen Influenza A (RT-PCR) Influenza B (RT-PCR) RSV (RT-PCR) SARS-CoV-2 RNA (RT-PCR) 08/15/24 08/15/24 08/15/24 21:38 22:13 22:14 WBC RBC Hgb Hct MCV MCH MCHC RDW Plt Count MPV Immature Gran % (Auto) Neut % (Auto) Lymph % (Auto) [place] % (Auto) Eos % (Auto) Baso % (Auto) Lymph # (Auto) [place] # (Auto) Eos # (Auto) Baso # (Auto) Abs Immat Gran (auto) Absolute Neuts (auto) Absolute Nucleated RBC Nucleated RBC % ESR Sodium Potassium Chloride Carbon Dioxide Anion Gap BUN Creatinine Estim Creat Clear Calc Estimated GFR Glucose POC Capillary Glucose 69 Hemoglobin A1c 8.8 H Calcium Phosphorus Magnesium 2.2 Total Bilirubin GGT AST ALT Alkaline Phosphatase Ammonia Total Creatine Kinase Troponin I 0.058 H* C-Reactive Protein NT-Pro-B Natriuret Pep 56093 H Total Protein Albumin Procalcitonin Nasal MRSA (PCR) Hepatitis A IgM Ab Hep Bs Antigen Hep B Core IgM Ab Hepatitis C Ab Screen Influenza A (RT-PCR) Influenza B (RT-PCR) RSV (RT-PCR) SARS-CoV-2 RNA (RT-PCR) 08/15/24 08/16/24 08/16/24 23:39 00:01 00:05 WBC RBC Hgb Hct MCV MCH MCHC RDW Plt Count MPV Immature Gran % (Auto) Neut % (Auto) Lymph % (Auto) [place] % (Auto) Eos % (Auto) Baso % (Auto) Lymph # (Auto) [place] # (Auto) Eos # (Auto) Baso # (Auto) Abs Immat Gran (auto) Absolute Neuts (auto) Absolute Nucleated RBC Nucleated RBC % ESR 124 H Sodium 135 L Potassium 5.6 H Chloride 97 L Carbon Dioxide 21 L Anion Gap 17 H BUN 66 H Creatinine 5.30 H Estim Creat Clear Calc 16 Estimated GFR 12 L Glucose 129 H POC Capillary Glucose 143 H Hemoglobin A1c Calcium 8.5 Phosphorus 8.8 H Magnesium 2.2 Total Bilirubin 1.8 H GGT 428 H AST 75 H ALT 78 H Alkaline Phosphatase 686 H Ammonia 45 H Total Creatine Kinase 96 Troponin I C-Reactive Protein 0.8 NT-Pro-B Natriuret Pep Total Protein 9.0 H Albumin 3.7 Procalcitonin 2.9 Nasal MRSA (PCR) Hepatitis A IgM Ab Negative Hep Bs Antigen Negative Hep B Core IgM Ab Negative Hepatitis C Ab Screen Negative Influenza A (RT-PCR) Influenza B (RT-PCR) RSV (RT-PCR) SARS-CoV-2 RNA (RT-PCR) 08/16/24 08/16/24 08/16/24 02:34 04:04 07:05 WBC 6.4 RBC 3.14 L Hgb 10.0 L Hct 31.0 L MCV 98.7 MCH 31.8 MCHC 32.3 RDW 15.9 H Plt Count 254 MPV 9.1 Immature Gran % (Auto) 0.3 Neut % (Auto) 55.2 Lymph % (Auto) 22.8 [place] % (Auto) 13.8 H Eos % (Auto) 6.3 H Baso % (Auto) 1.6 H Lymph # (Auto) 1.45 [place] # (Auto) 0.9 H Eos # (Auto) 0.4 H Baso # (Auto) 0.1 Abs Immat Gran (auto) 0.02 Absolute Neuts (auto) 3.5 Absolute Nucleated RBC 0.000 Nucleated RBC % 0.0 ESR Sodium Potassium Chloride Carbon Dioxide Anion Gap BUN Creatinine Estim Creat Clear Calc Estimated GFR Glucose POC Capillary Glucose 151 H 111 H Hemoglobin A1c Calcium Phosphorus Magnesium Total Bilirubin GGT AST ALT Alkaline Phosphatase Ammonia Total Creatine Kinase Troponin I C-Reactive Protein NT-Pro-B Natriuret Pep Total Protein Albumin Procalcitonin Nasal MRSA (PCR) Hepatitis A IgM Ab Hep Bs Antigen Hep B Core IgM Ab Hepatitis C Ab Screen Influenza A (RT-PCR) Influenza B (RT-PCR) RSV (RT-PCR) SARS-CoV-2 RNA (RT-PCR) 08/16/24 08/16/24 08/16/24 09:35 11:22 15:21 WBC RBC Hgb Hct MCV MCH MCHC RDW Plt Count MPV Immature Gran % (Auto) Neut % (Auto) Lymph % (Auto) [place] % (Auto) Eos % (Auto) Baso % (Auto) Lymph # (Auto) [place] # (Auto) Eos # (Auto) Baso # (Auto) Abs Immat Gran (auto) Absolute Neuts (auto) Absolute Nucleated RBC Nucleated RBC % ESR Sodium Potassium Chloride Carbon Dioxide Anion Gap BUN Creatinine Estim Creat Clear Calc Estimated GFR Glucose POC Capillary Glucose 194 H 158 H Hemoglobin A1c Calcium Phosphorus Magnesium Total Bilirubin GGT AST ALT Alkaline Phosphatase Ammonia Total Creatine Kinase Troponin I C-Reactive Protein NT-Pro-B Natriuret Pep Total Protein Albumin Procalcitonin Nasal MRSA (PCR) Not detected Hepatitis A IgM Ab Hep Bs Antigen Hep B Core IgM Ab Hepatitis C Ab Screen Influenza A (RT-PCR) Influenza B (RT-PCR) RSV (RT-PCR) SARS-CoV-2 RNA (RT-PCR) Quality VTE Prophylaxis VTE prophylaxis: mechanical ordered
[2024-08-16] MEDS: cloNIDine HCL 0.1 MG TABLET PO (16:43)
[2024-08-16] MEDS: BICTEGRAVIR PO (17:19)
[2024-08-16] MEDS: TENOFOVIR ALAFENAMIDE PO (17:19)
[2024-08-16] MEDS: EMTRICITABINE PO (17:19)
[2024-08-16] MEDS: ISOSORBIDE DINITRATE 10 MG TABLET PO (17:20)
[2024-08-16] MEDS: AZITHROMYCIN 500 MG/NS 250 ML 500 MG/250 ML BAG 250 MG IVPB (17:22)
[2024-08-16 18:33] LABS: Glucose Point of Care 228 mg/dl (65-105)
[2024-08-16] MEDS: PROMETHAZINE HCL 25 MG/ML AMPUL 12.5 MG IV PUSH (19:44)
[2024-08-16 20:25] LABS: Glucose Point of Care 184 mg/dl (65-105)
[2024-08-16] MEDS: HEPARIN SODIUM 5,000 UNITS/ML VIAL 5000 UNITS SUB-Q (21:46)
[2024-08-16] MEDS: carvediloL 25 MG TABLET PO (21:47)
[2024-08-16] MEDS: hydrALAZINE HCL 50 MG TABLET 100 MG BY MOUTH (21:47)
[2024-08-16 21:50] LABS: Glucose Point of Care 146 mg/dl (65-105)
[2024-08-17] VITALS (10 sets, daily range): BP systolic 158–185; BP diastolic 77–95; PULSE 74–81; RESP 10–20; TEMP 36.7–37.2; O2SAT 96–100
[2024-08-17 00:17] LABS: Glucose Point of Care 100 mg/dl (65-105)
[2024-08-17 05:19] LABS: Glucose Point of Care 62 mg/dl (65-105)
[2024-08-17] MEDS: HEPARIN SODIUM 5,000 UNITS/ML VIAL 5000 UNITS SUB-Q (06:32)
[2024-08-17 07:26] LABS: Glucose Point of Care 117 mg/dl (65-105)
[2024-08-17] MEDS: ESCITALOPRAM OXALATE 10 MG TABLET PO (07:54)
[2024-08-17] MEDS: ISOSORBIDE DINITRATE 10 MG TABLET PO ×2 (07:54→12:09)
[2024-08-17] MEDS: hydrALAZINE HCL 50 MG TABLET 100 MG BY MOUTH (07:54)
[2024-08-17] MEDS: carvediloL 25 MG TABLET PO (07:54)
[2024-08-17] MEDS: INSULIN GLARGINE (*BKC) 100 UNITS/ML 6 UNITS SUB-Q (07:55)
[2024-08-17] MEDS: LOSARTAN POTASSIUM 50 MG TABLET PO ×2 (07:55→09:57)
[2024-08-17 08:01] LABS: Basophils Absolute Auto 0.1 K/mm3 (0.0-0.1); Basophils Percent Auto 1.3 % (0.2-1.2); Eosinophils Absolute Auto 0.5 K/mm3 (0-0.3); Eosinophils Percent Auto 6.3 % (0-4.4); Hematocrit 30.9 % (37.0-47.0); Hemoglobin 10.4 g/dL (12.0-15.0); Immature Granulocyte Absolute 0.03 K/mm3 (0.00-0.031); Immature Granulocyte Percent A 0.4 % (0-0.5); Lymphocytes Absolute Auto 1.38 K/mm3 (0.9-3.2); Lymphocytes Percent Auto 18.3 % (18.3-44.2); Mean Corpuscular HGB Conc 33.7 g/dl (32-36); Mean Corpuscular Hemoglobin 32.8 pg (26-34); Mean Corpuscular Volume 97.5 fl (80-100); Monocytes Absolute Auto 0.9 K/mm3 (0.1-0.6); Monocytes Percent Auto 12.2 % (2.6-8.5); Neutrophils Absolute Auto 4.7 K/mm3 (1.3-6.7); Neutrophils Percent Auto 61.5 % (45.5-73.1); Platelet Count Result 246 k/mm3 (150-375); Red Blood Count 3.17 M/mm3 (4.2-5.4); White Blood Count 7.6 K/mm3 (4.5-10.0)
[2024-08-17 08:16] LABS: Alanine Aminotransferase 78 U/L (6-35); Albumin Level 3.6 g/dL (3.5-5.1); Alkaline Phosphatase 735 U/L (38-126); Anion Gap 10 mmol/L (4-12); Aspartate Amino Transferase 77 U/L (14-36); Bilirubin,Total 1.8 mg/dL (0.2-1.3); Blood Urea Nitrogen 46 mg/dL (7-17); Calcium 8.1 mg/dL (8.4-10.2); Carbon Dioxide 31 mmol/L (22-30); Chloride 95 mmol/L (98-107); Estimated CRCL calculation 18 ml/min; Estimated Glomerular Filt Rate 16; Glucose 107 mg/dL (65-110); Magnesium 2.2 mg/dL (1.6-2.3); Potassium 4.5 mmol/L (3.4-5.0); Sodium 136 mmol/L (137-145)
--- NOTE | 2024-08-17 09:33 | PM.PNNEP ---
Progress Note: A&P Assessment and Plan (1) ESRD (end stage renal disease) on dialysis: Code(s): N18.6 - End stage renal disease; Z99.2 - Dependence on renal dialysis Status: Chronic Assessment and Plan: the patient has end-stage renal disease. This is due to diabetes. She gets dialysis 3 times a week under the care of Dr. Hinson. she had a last treatment yesterday and it went well. No shortness of breath. No nausea or vomiting. Appetite is good potassium bicarbonate and BUN are in a good range for dialysis patient (2) HTN (hypertension): Qualifiers: Hypertension type: secondary to other renal disorders Qualified Code(s): I15.1 - Hypertension secondary to other renal disorders Code(s): I10 - Essential (primary) hypertension Status: Acute Assessment and Plan: Blood pressure is still a bit high. Systolic ranging 130s to 170s. Increase losartan to 100 (3) Diabetes: Code(s): E11.9 - Type 2 diabetes mellitus without complications Status: Acute Assessment and Plan: On sliding scale and Accu-Cheks. Management per hospitalist. (4) Erythropoietin deficiency anemia: Code(s): D63.1 - Anemia in chronic kidney disease Status: Acute Assessment and Plan: Hemoglobin is 10.0. Will give her some Epogen. (5) Renal osteodystrophy: Code(s): N25.0 - Renal osteodystrophy Status: Acute Plan Will check a phosphorus level in the morning Subjective Date/time seen: 08/17/24 09:33 Interval history: Avril is feeling better today. Eager for discharge Review of Systems Cardiovascular: Cardiovascular: Reports no additional cardiovascular complaints Respiratory: Respiratory: Reports no additional respiratory complaints Gastrointestinal: Gastrointestinal: Reports no additional gastrointestinal complaints Genitourinary: Genitourinary: Reports no additional female genitourinary complaints Exam Narrative: WDWN in NAD skin no rash head ncat lungs clear cor reg no rub abd BS+ nontender and soft ext no edema. Objective Data Vital Signs Vital Signs: Vital Signs - 24 hr 08/16/24 13:45 08/16/24 13:59 08/16/24 14:30 Temperature 97.6 F Pulse Rate 73 79 78 Respiratory Rate 19 Blood Pressure 164/98 H 149/84 H 190/102 H Pulse Oximetry 100 Oxygen Delivery 08/16/24 14:45 08/16/24 15:00 08/16/24 15:15 Temperature Pulse Rate 78 79 81 Respiratory Rate Blood Pressure 184/100 H 199/101 H 186/111 H Pulse Oximetry Oxygen Delivery 08/16/24 15:30 08/16/24 15:45 08/16/24 16:00 Temperature Pulse Rate 82 84 85 Respiratory Rate Blood Pressure 188/86 H 189/104 H 209/106 H Pulse Oximetry Oxygen Delivery 08/16/24 16:15 08/16/24 16:45 08/16/24 17:15 Temperature Pulse Rate 86 88 87 Respiratory Rate Blood Pressure 198/90 H 211/101 H 193/107 H Pulse Oximetry Oxygen Delivery 08/16/24 10:00 08/16/24 12:00 08/16/24 10:00 Temperature Pulse Rate 72 71 72 Respiratory Rate 16 Blood Pressure 183/105 H Pulse Oximetry 99 Oxygen Delivery 08/16/24 12:00 08/16/24 14:00 08/16/24 14:00 Temperature Pulse Rate 71 71 78 Respiratory Rate 17 19 Blood Pressure 154/98 H 149/84 H Pulse Oximetry 96 97 Oxygen Delivery 08/16/24 12:00 08/16/24 14:15 08/16/24 16:00 Temperature Pulse Rate 75 Respiratory Rate Blood Pressure 194/109 H Pulse Oximetry Oxygen Delivery Room Air Room Air 08/16/24 16:00 08/16/24 16:00 08/16/24 16:30 Temperature Pulse Rate 85 85 86 Respiratory Rate 15 Blood Pressure 209/106 H 210/98 H Pulse Oximetry 97 Oxygen Delivery 08/16/24 17:00 08/16/24 18:00 08/16/24 18:26 Temperature Pulse Rate 87 86 86 Respiratory Rate 14 Blood Pressure 197/122 H 134/85 Pulse Oximetry 94 Oxygen Delivery 08/16/24 17:30 08/16/24 18:00 08/16/24 17:32 Temperature 98.4 F Pulse Rate 85 84 84 Respiratory Rate 16 Blood Pressure 180/97 H 187/98 H 184/92 H Pulse Oximetry 94 Oxygen Delivery 08/16/24 19:35 08/16/24 21:18 08/16/24 21:47 Temperature 98.1 F Pulse Rate 82 80 79 Respiratory Rate 16 14 Blood Pressure 176/96 H Pulse Oximetry 100 100 Oxygen Delivery CPAP 08/16/24 20:00 08/16/24 22:00 08/16/24 21:40 Temperature Pulse Rate 83 79 Respiratory Rate Blood Pressure Pulse Oximetry Oxygen Delivery CPAP 08/17/24 00:00 08/17/24 00:00 08/17/24 00:00 Temperature 98.1 F Pulse Rate 79 79 Respiratory Rate 20 Blood Pressure 160/84 H Pulse Oximetry 96 Oxygen Delivery CPAP 08/17/24 02:00 08/17/24 03:21 08/17/24 04:00 Temperature Pulse Rate 81 81 80 Respiratory Rate 10 L Blood Pressure Pulse Oximetry 100 Oxygen Delivery CPAP 08/17/24 04:00 08/17/24 04:00 08/17/24 06:00 Temperature 98.2 F Pulse Rate 81 76 Respiratory Rate 16 Blood Pressure 165/95 H Pulse Oximetry 97 Oxygen Delivery CPAP 08/17/24 07:54 08/17/24 08:00 Temperature 98.9 F Pulse Rate 78 77 Respiratory Rate 16 Blood Pressure 158/77 H Pulse Oximetry 97 Oxygen Delivery Intake/Output Intake/Output: Intake & Output 08/14/24 08/15/24 08/16/24 08/17/24 23:59 23:59 23:59 23:59 Intake Total 300 920 Output Total 3010 0 Balance 300 -2090 0 Meds/Results Medications: Active Medications Generic Name Dose Route Start Last Admin Trade Name Freq PRN Reason Stop Dose Admin Acetaminophen 650 mg 08/15/24 17:43 Acetaminophen 325 Mg Tablet PO Q4H PRN Mild Pain (1-3) or Fever Hydrocodone Bitart/Acetaminophen 1 tab 08/15/24 17:43 Hydrocodone/Acetaminophen (*Crx) 5-325 Mg Tablet PO Q4H PRN Pain Rated 4-6 Carvedilol 25 mg 08/16/24 21:00 08/17/24 07:54 Carvedilol 25 Mg Tablet PO 25 mg Q12HR NHUNG Administration Clonidine HCl 0.1 mg 08/16/24 16:19 08/16/24 16:43 Clonidine Hcl 0.1 Mg Tablet PO 0.1 mg Q8HR PRN Administration SBP>160mmHg Dextrose 12.5 gm 08/15/24 17:43 08/15/24 21:50 Dextrose 50% 25 Gm/50 Ml Syringe IV PUSH 12.5 gm PRN PRN Administration Hypoglycemia Protocol Epoetin Bear-epbx 10,000 units 08/16/24 10:45 08/16/24 16:10 Epoetin Bear-Epbx 10,000 Units/Ml Vial IV PUSH Not Given TUTHSA@09 NHUNG Escitalopram Oxalate 10 mg 08/17/24 09:00 08/17/24 07:54 Escitalopram Oxalate 10 Mg Tablet PO 10 mg DAILY NHUNG Administration Glucagon 1 mg 08/15/24 17:43 Glucagon For Inj 1 Mg Vial IM PRN PRN Hypoglycemia Protocol Glucose 15 gm 08/15/24 17:43 Glucose Oral Gel 15 Gm Of Glucse In 37.5 Gm Tube PO PRN PRN Hypoglycemia Protocol Heparin Sodium (Porcine) 5,000 units 08/16/24 22:00 08/17/24 06:32 Heparin Sodium 5,000 Units/Ml Vial SUB-Q 5,000 units Q8HR NHUNG Administration Hydralazine HCl 100 mg 08/16/24 21:00 08/17/24 07:54 Hydralazine Hcl 50 Mg Tablet BY MOUTH 100 mg Q12HR NHUNG Administration Ceftriaxone Sodium 1 gm in 50 mls @ 100 mls/hr 08/16/24 18:00 08/16/24 17:22 Rocephin 1 Gm/Ns 50 Ml IVPB 100 mls/hr Q24H NHUNG Administration Azithromycin 500 mg in 250 mls @ 250 mls/hr 08/16/24 18:00 08/16/24 17:22 Zithromax IVPB 250 mls/hr Q24H NHUNG Administration Dextrose 1,000 mls @ 100 mls/hr 08/15/24 17:43 Dextrose 5% 1,000 Ml IVPB PRN PRN Hypoglycemia Protocol Insulin Glargine 6 units 08/16/24 09:00 08/17/24 07:55 Insulin Glargine (*Bkc) 100 Units/Ml SUB-Q 6 units BID NHUNG Administration Isosorbide Dinitrate 10 mg 08/16/24 17:00 08/17/24 07:54 Isosorbide Dinitrate 10 Mg Tablet PO 10 mg TID NHUNG Administration Losartan Potassium 50 mg 08/16/24 09:00 08/17/24 07:55 Losartan Potassium 50 Mg Tablet PO 50 mg DAILY NHUNG Administration Nonformulary ( 0 mg 08/16/24 18:00 08/16/24 17:19 Biktarvy) PO 09/15/24 17:59 1 mg Bictegravir/ EVENING NHUNG Administration Emtricitabine/ Tenofovir Alafenamide 50/200/ 25 Mg) ) Promethazine HCl 12.5 mg 08/15/24 17:43 08/16/24 19:44 Promethazine Hcl 25 Mg/Ml Ampul IV PUSH 12.5 mg Q6H PRN Administration Nausea Radiology Results: ITS Impressions Chest X-Ray 08/15/24 15:02 IMPRESSION: 1. Airspace opacities in left lower lobe, consistent with atelectasis versus pneumonia. 2. Cardiomegaly. Head CT 08/15/24 16:59 IMPRESSION: 1. Normal brain. No acute intracranial process. Abdomen Ultrasound 08/16/24 09:50 IMPRESSION: 1. Cholelithiasis. Gallbladder wall thickening may be secondary to chronic cholecystitis or interstitial edema. 2. Antegrade pulsatile flow in main portal vein, which may be seen with right heart failure. Labs Labs: Laboratory Results - last 24 hr 08/16/24 08/16/24 08/16/24 09:35 11:22 15:21 WBC RBC Hgb Hct MCV MCH MCHC RDW Plt Count MPV Immature Gran % (Auto) Neut % (Auto) Lymph % (Auto) [place] % (Auto) Eos % (Auto) Baso % (Auto) Lymph # (Auto) [place] # (Auto) Eos # (Auto) Baso # (Auto) Abs Immat Gran (auto) Absolute Neuts (auto) Absolute Nucleated RBC Nucleated RBC % Sodium Potassium Chloride Carbon Dioxide Anion Gap BUN Creatinine Estim Creat Clear Calc Estimated GFR Glucose POC Capillary Glucose 194 H 158 H Calcium Magnesium Total Bilirubin AST ALT Alkaline Phosphatase Total Protein Albumin Nasal MRSA (PCR) Not detected 08/16/24 08/16/24 08/16/24 18:30 19:37 21:47 WBC RBC Hgb Hct MCV MCH MCHC RDW Plt Count MPV Immature Gran % (Auto) Neut % (Auto) Lymph % (Auto) [place] % (Auto) Eos % (Auto) Baso % (Auto) Lymph # (Auto) [place] # (Auto) Eos # (Auto) Baso # (Auto) Abs Immat Gran (auto) Absolute Neuts (auto) Absolute Nucleated RBC Nucleated RBC % Sodium Potassium Chloride Carbon Dioxide Anion Gap BUN Creatinine Estim Creat Clear Calc Estimated GFR Glucose POC Capillary Glucose 228 H 184 H 146 H Calcium Magnesium Total Bilirubin AST ALT Alkaline Phosphatase Total Protein Albumin Nasal MRSA (PCR) 08/17/24 08/17/24 08/17/24 00:13 05:08 07:19 WBC RBC Hgb Hct MCV MCH MCHC RDW Plt Count MPV Immature Gran % (Auto) Neut % (Auto) Lymph % (Auto) [place] % (Auto) Eos % (Auto) Baso % (Auto) Lymph # (Auto) [place] # (Auto) Eos # (Auto) Baso # (Auto) Abs Immat Gran (auto) Absolute Neuts (auto) Absolute Nucleated RBC Nucleated RBC % Sodium Potassium Chloride Carbon Dioxide Anion Gap BUN Creatinine Estim Creat Clear Calc Estimated GFR Glucose POC Capillary Glucose 100 62 L 117 H Calcium Magnesium Total Bilirubin AST ALT Alkaline Phosphatase Total Protein Albumin Nasal MRSA (PCR) 08/17/24 07:54 WBC 7.6 RBC 3.17 L Hgb 10.4 L Hct 30.9 L MCV 97.5 MCH 32.8 MCHC 33.7 RDW 16.0 H Plt Count 246 MPV 9.0 Immature Gran % (Auto) 0.4 Neut % (Auto) 61.5 Lymph % (Auto) 18.3 [place] % (Auto) 12.2 H Eos % (Auto) 6.3 H Baso % (Auto) 1.3 H Lymph # (Auto) 1.38 [place] # (Auto) 0.9 H Eos # (Auto) 0.5 H Baso # (Auto) 0.1 Abs Immat Gran (auto) 0.03 Absolute Neuts (auto) 4.7 Absolute Nucleated RBC 0.000 Nucleated RBC % 0.0 Sodium 136 L Potassium 4.5 Chloride 95 L Carbon Dioxide 31 H Anion Gap 10 BUN 46 H D Creatinine 4.20 H Estim Creat Clear Calc 18 Estimated GFR 16 L Glucose 107 POC Capillary Glucose Calcium 8.1 L Magnesium 2.2 Total Bilirubin 1.8 H AST 77 H ALT 78 H Alkaline Phosphatase 735 H Total Protein 9.0 H Albumin 3.6 Nasal MRSA (PCR)
[2024-08-17 11:40] LABS: Glucose Point of Care 254 mg/dl (65-105)
--- NOTE | 2024-08-17 14:30 | P.DS_ITS ---
DS: Admitting Diagnosis Discharge Date 08/17/24 Admitting Diagnosis AMS DS: Discharge Diagnosis Discharge Diagnosis (1) Hypoglycemia: Code(s): E16.2 - Hypoglycemia, unspecified Status: Acute (2) Pneumonia: Qualifiers: Laterality: left Lung location: lower lobe of lung Pneumonia type: due to unspecified organism Qualified Code(s): J18.9 - Pneumonia, unspecified organism Code(s): J18.9 - Pneumonia, unspecified organism Status: Acute (3) ESRD (end stage renal disease) on dialysis: Code(s): N18.6 - End stage renal disease; Z99.2 - Dependence on renal dialysis Status: Chronic (4) Altered mental state: Qualifiers: Altered mental status type: somnolence Qualified Code(s): R40.0 - Somnolence Code(s): R41.82 - Altered mental status, unspecified Status: Acute DS: Summary Hospital Course Hospital Course: 23 y/o F presents here with altered mental status with PMH of DM1, ESRD on HD (/Sun), CHF, HTN, and HIV. The patient presents here via EMS for further evaluation of altered mental status. The patient was with her mom in the car when she became altered. The patient reported to her mom after the incident that she began to feel unwell when they got in the care around 1 p.m. Mom became concerned that her sugar may begin to drop given it was past lunch and the patient has a hx of DM1. They went through the drivethrough for a fast food restaurant. They then went to drive home from there, patient then stopped responding to verbal stimuli. Mom then drove to the patient's sister's house that was closer. She checked her sugar which was 41. She administered glucose gel. Recheck was 45. Initial glucose was 62, EMS was called and administered D10. Repeat blood sugar was checked at 200. However despite blood sugar being corrected, the patient remains lethargic. Patient's last hypoglycemic event prior to today was Sun and was also low week prior on . After hypoglycemia event last Sunday she was evaluated at [facility]. At this visit they adjusted her Lantus from 12u -> 16u. The mother reports that the patient has not been experiencing any cough, shortness of breath, fever, chills, body aches, or recent illness. Initial VS at presentation: 95.4? F, HR 64, RR 11, 154/93, and 97% on RA. ED workup showed: No leukocytosis, hemoglobin 10.1 (no previous available for comparison), INR 1.3, no significant derangements on ABG, creatinine 4.7 and GFR 14) no previous available for comparison), total bilirubin 1.8, TSH within normal limits, ETOH negative, and viral PCR negative. CXR showed airspace opacities left lower lobe consistent with atelectasis versus pneumonia and cardiomegaly. Head CT showed normal brain and no acute intracranial process. Patient was placed on d5w and blood sugar stabilized. Lantus insulin was decreased to 12 units however she had one episode of episode hypoglycemia, thus it was reduced to 8 units. Patient was advised to hold mealtime insulin and use correctional doses for now and follow up with PCP for conitnual adjustments. CXR showed Pneumonia, and patient was started on Azithromycin and Rocephin. she stabilized and she is now at baseline, discharged on Augmentin and Doxycycline x 7 days. She continued her dilaysis inpatient, Blood pressure was elevated and Nehprolgoy increased Losartan to 100mg daily. Patient will continue f/u with PCP in 3-5 days, Nephrology as instructed Assessment and Plan (1) Altered mental state: Qualifiers: Altered mental status type: somnolence Qualified Code(s): R40.0 - Somnolence Code(s): R41.82 - Altered mental status, unspecified Status: Acute Assessment and Plan: - head CT: No acute intracranial process. - patient does not make urine, unable to obtain a UDS. Trial of Narcan yielded no results in the ED. - glucose corrected initially and patient was able to stay in wakefulness and able to walk to the commode in the ER, however blood sugar has dropped and patient became lethargic/somnolent. Glucose rechecked and 67. Dextrose 12.5 g given, slightly more awake. Per mother when glucose was corrected she was appropriate. resolved now alert and oriented x3 monitor (2) Hypoglycemia: Code(s): E16.2 - Hypoglycemia, unspecified Status: Acute Assessment and Plan: -hypoglycemia in the setting of type 1 diabetes - hypoglycemia protocol - POC blood glucose Q2H - home medication: Lantus 16 units a.m., plan to revert to previous dose at 12 and split dose to 6 units in the a.m. and 6 units HS. - correct regimen ordered - high dose TIDWM based off BMI - A1C ordered - certified diabetes educator consulted blood sugar wnl now continue Lantus 12 unit daily (3) Hypothermia: Qualifiers: Encounter type: initial encounter Qualified Code(s): T68.XXXA - Hypothermia, initial encounter Code(s): T68.XXXA - Hypothermia, initial encounter Status: Acute Assessment and Plan: - initial temp 95.4? F - Alex Hugger applied resolved (4) Pneumonia: Qualifiers: Laterality: left Lung location: lower lobe of lung Pneumonia type: due to unspecified organism Qualified Code(s): J18.9 - Pneumonia, unspecified organism Code(s): J18.9 - Pneumonia, unspecified organism Status: Acute Assessment and Plan: - CXR: 1. Airspace opacities in left lower lobe, consistent with atelectasis versus pneumonia. 2. Cardiomegaly. - started on ceftriaxone and azithromycin on 08/15 - Viral PCR negative - add MRSA - supportive care - no supplemental O2 requirement at this time (5) ESRD (end stage renal disease) on dialysis: Code(s): N18.6 - End stage renal disease; Z99.2 - Dependence on renal dialysis Status: Chronic Assessment and Plan: - creatinine 4.7 and GFR 14 - nephrology consulted - dialysis: Sunday, , Sunday. No recently missed treatments. - trend renal function - trend electrolytes, correct as needed (6) HTN (hypertension): Qualifiers: Hypertension type: secondary to other renal disorders Qualified Code(s): I15.1 - Hypertension secondary to other renal disorders Code(s): I10 - Essential (primary) hypertension Status: Acute Assessment and Plan: - chronic, currently 116/94 - continue home medications: Losartan increased to 100mg daily, continue other home meds - monitor Plan Has been diagnosed with sleep apnea, however unable to get a CPAP machine and has scheduled appointment for next year to be evaluated. Will start CPAP here given coarse/wet lung sounds. HIV continue home biktarvy Time Spent with Patient Time attestation: Total time spent providing and/or coordinating discharge services: DS: Data Data Completed and Pending Labs on day of discharge: Labs from last 24 hours 08/17/24 08/17/24 08/17/24 11:31 07:54 07:19 WBC 7.6 RBC 3.17 L Hgb 10.4 L Hct 30.9 L MCV 97.5 MCH 32.8 MCHC 33.7 RDW 16.0 H Plt Count 246 MPV 9.0 Immature Gran % (Auto) 0.4 Neut % (Auto) 61.5 Lymph % (Auto) 18.3 [place] % (Auto) 12.2 H Eos % (Auto) 6.3 H Baso % (Auto) 1.3 H Lymph # (Auto) 1.38 [place] # (Auto) 0.9 H Eos # (Auto) 0.5 H Baso # (Auto) 0.1 Abs Immat Gran (auto) 0.03 Absolute Neuts (auto) 4.7 Absolute Nucleated RBC 0.000 Nucleated RBC % 0.0 Sodium 136 L Potassium 4.5 Chloride 95 L Carbon Dioxide 31 H Anion Gap 10 BUN 46 H D Creatinine 4.20 H Estim Creat Clear Calc 18 Estimated GFR 16 L Glucose 107 POC Capillary Glucose 254 H 117 H Calcium 8.1 L Magnesium 2.2 Total Bilirubin 1.8 H AST 77 H ALT 78 H Alkaline Phosphatase 735 H Total Protein 9.0 H Albumin 3.6 08/17/24 08/17/24 08/16/24 05:08 00:13 21:47 WBC RBC Hgb Hct MCV MCH MCHC RDW Plt Count MPV Immature Gran % (Auto) Neut % (Auto) Lymph % (Auto) [place] % (Auto) Eos % (Auto) Baso % (Auto) Lymph # (Auto) [place] # (Auto) Eos # (Auto) Baso # (Auto) Abs Immat Gran (auto) Absolute Neuts (auto) Absolute Nucleated RBC Nucleated RBC % Sodium Potassium Chloride Carbon Dioxide Anion Gap BUN Creatinine Estim Creat Clear Calc Estimated GFR Glucose POC Capillary Glucose 62 L 100 146 H Calcium Magnesium Total Bilirubin AST ALT Alkaline Phosphatase Total Protein Albumin 08/16/24 08/16/24 08/16/24 19:37 18:30 15:21 WBC RBC Hgb Hct MCV MCH MCHC RDW Plt Count MPV Immature Gran % (Auto) Neut % (Auto) Lymph % (Auto) [place] % (Auto) Eos % (Auto) Baso % (Auto) Lymph # (Auto) [place] # (Auto) Eos # (Auto) Baso # (Auto) Abs Immat Gran (auto) Absolute Neuts (auto) Absolute Nucleated RBC Nucleated RBC % Sodium Potassium Chloride Carbon Dioxide Anion Gap BUN Creatinine Estim Creat Clear Calc Estimated GFR Glucose POC Capillary Glucose 184 H 228 H 158 H Calcium Magnesium Total Bilirubin AST ALT Alkaline Phosphatase Total Protein Albumin Preliminary micro results at discharge 08/15/24 18:36 Blood Culture - Preliminary Blood 08/15/24 18:25 Blood Culture - Preliminary Blood Discharge Plan Discharge Attending physician on discharge: Tammy Carballo Consulting providers: Wilberto Peña Discharging Clinician: Tammy Carballo Anticipated Discharge Date/Time: 08/17/24 14:25 Patient Disposition: Home, Self-Care Activity: as tolerated Diet: as tolerated Patient Instructions: Antibiotic Form, Heart Failure (DC), Acute Hypothermia (GEN), Pneumonia (GEN) Stand Alone Forms: General Discharge Information Follow-up/Referrals: Socorro Araujo [Other] Waleska Baeza DO [Physician] - (F/u with PCP in 3-5 days ) Wilberto Peña MD [Physician] - (F/u with nephrology as instructed ) Discharge Medications: New losartan [Cozaar] 50 mg Tablet 100 mg PO DAILY 30 Days Qty: 60 1RF doxycycline hyclate 100 mg tablet 100 mg PO BID Qty: 7 0RF amoxicillin-pot clavulanate 875-125 mg tablet 1 tablet PO Q12H Qty: 7 0RF Continued carvedilol 25 mg tablet 25 mg PO BID isosorbide dinitrate 10 mg tablet 10 mg PO TID clonidine HCl 0.1 mg tablet See Rx Instructions .ROUTE .COMPLEX Rx Instructions: TAKE 1 TABLET BY MOUTH EVERY 8 HOURS citalopram 10 mg tablet 10 mg PO DAILY hydralazine 50 mg tablet See Rx Instructions .ROUTE .COMPLEX Rx Instructions: TAKE 2 TABLETS BY MOUTH EVERY 12 HOURS gabapentin 100 mg capsule 100 mg PO TID escitalopram oxalate 10 mg tablet 10 mg PO DAILY Velphoro 500 mg tablet,chewable See Rx Instructions .ROUTE .COMPLEX Rx Instructions: CHEW AND SWALLOW 1 TABLET BY MOUTH IN THE MORNING AND AT NOON AND IN THE EVENING AND BEFORE MEALS Fiasp FlexTouch U-100 Insulin 100 unit/mL (3 mL) insulin pen See Rx Instructions .ROUTE .COMPLEX Rx Instructions: INJECT 3 UNITS UNDER THE SKIN THREE TIMES DAILY Biktarvy 50-200-25 mg tablet 1 tablet PO QHS Changed insulin glargine [Basaglar KwikPen U-100 Insulin] 100 unit/mL (3 mL) insulin pen 8 unit SUBCUT QHS 30 Days Qty: 100 2RF Discontinued losartan 50 mg tablet 50 mg PO DAILY Date of admission: 08/16/24 09:10 Primary Care Provider: Socorro Araujo Admitting Provider: Nicko Hernandez Attending physician on admission: Nicko Hernandez Condition: Stable
--- NOTE | 2024-08-18 14:48 | PCCDE ---
08/18/24 [place] 08/15/24 22:09 Pt DC'd prior to being able to see pt. Attempted to place [facility] courtesy call, number listed: [phone] = [facility]. I was not able to reach pt or voice mail system.
== END 2024-08-17 17:25 | disposition home health service (06) | DRG 637 ==
LOC: ANHED 19:04 → ANHICU 20:12 → ANHIMU 08-17 14:29 → ANHICU 08-19 15:17 → ANHIMU 08-19 15:17
PROVIDERS: Student in an Organized Health Care Education/Training Program; Admitting Provider Internal Medicine; Emergency Provider Emergency Medicine; Visit Provider Internal Medicine
DX: E10.649 Type 1 diabetes mellitus with hypoglycemia without coma (principal); J18.9 Pneumonia, unspecified organism; B20 Human immunodeficiency virus [HIV] disease; I13.2 Hypertensive heart and chronic kidney disease with heart failure and with stage 5 chronic kidney disease, or end stage renal disease; E10.22 Type 1 diabetes mellitus with diabetic chronic kidney disease; N18.6 End stage renal disease; E10.42 Type 1 diabetes mellitus with diabetic polyneuropathy; D63.1 Anemia in chronic kidney disease; G47.30 Sleep apnea, unspecified; N25.0 Renal osteodystrophy; Z99.2 Dependence on renal dialysis; Z20.822 Contact with and (suspected) exposure to COVID-19; R68.0 Hypothermia, not associated with low environmental temperature; Z79.899 Other long term (current) drug therapy
CPT/HCPCS: 36415; 36600; 70450; 71045; 76705; 80053; 80074; 82077; 82140; 82550; 82805; 82948; 82977; 83036; 83605; 83735; 83880; 84100; 84145; 84443; 84484; 85018; 85025; 85610; 85652; 85730; 86140; 87040; 87637; 87641; 93005; 94002; 94003; 96365; 96375; 96376; 99285; A9270; G0257; G0378; J0456; J0696; J1644; J1815; J2310; J2550; J7030; J7070